=== PATIENT | female | born 1965 | race Caucasian/White ===

== ENCOUNTER 2017-10-02 08:52 | Day surgery (SDC) | payer BC ==
[2017-10-02] MEDS ORDERED: PROPOFOL 200 MG/20 ML VIAL As Ordered ×2 (10:04→10:08)
== END 2017-10-02 10:52 | disposition home or self-care (01) ==
LOC: M OPP 08:52
DX: R13.10 Dysphagia, unspecified (principal); R12 Heartburn; K22.8 Other specified diseases of esophagus; K44.9 Diaphragmatic hernia without obstruction or gangrene; K21.0 Gastro-esophageal reflux disease with esophagitis; K31.89 Other diseases of stomach and duodenum; I10 Essential (primary) hypertension; E03.9 Hypothyroidism, unspecified; F32.9 Major depressive disorder, single episode, unspecified; F17.210 Nicotine dependence, cigarettes, uncomplicated; J44.9 Chronic obstructive pulmonary disease, unspecified; Z80.42 Family history of malignant neoplasm of prostate; Z79.899 Other long term (current) drug therapy
CPT/HCPCS: 43239

== ENCOUNTER → 2019-08-26 | Outpatient (CLI) | payer BC ==
[~2019-08-26] MED LIST: ESOM1CAP5; LEVO125T41 PO; LEVO200T4 PO; PAXI30TA11 PO; TRIBTAB PO
--- NOTE | 2019-08-26 14:24 | REP ---
WHOLE BODY RADIONUCLIDE BONE SCAN: HISTORY: Deformity at the posterolateral left 11th rib. TECHNIQUE: 21.4 mCi of technetium 99m MDP is injected and standard whole body bone scan imaging was acquired. Comparison CT study of the chest January 23, 2019 and August 24, 2019. Also reviewed is a prior CT study from June 26, 2013. That prior study showed several left posterior healing rib fractures, including the left posterior 10th rib. FINDINGS: There is a normal distribution bilaterally in the knees. There are foci of slightly increased uptake in the posterior segment of the left 10th rib and in the posterolateral segment of the left 9th rib consistent with healed or healing rib fractures. The left 10th rib focus corresponds with the area of slight deformity in the posterolateral segment of the 10th rib on recent CT study. This is visible in retrospect and is unchanged from January 23, 2019 study. The 2013 study shows a obvious healing fracture in this location which is slightly displaced. The focus of uptake in the 9th posterolateral rib is radiographically occult but is felt to be consistent with a healing fracture as well. No other abnormal skeletal radionuclide uptake. IMPRESSION: No evidence to suggest metastatic disease. Old healed or healing rib fractures on the left as described above. Electronically Signed by Will Lozano MD 08/26/2019 02:38 P
== END ==
LOC: M RAD 09:55
PROVIDERS: ATTEND Internal Medicine Cardiovascular Disease
DX: R07.89 Other chest pain (principal); Z87.81 Personal history of (healed) traumatic fracture
CPT/HCPCS: 78306; A9503

== ENCOUNTER → 2022-01-01 | Outpatient (CLI) | payer BC | LOC: M PLARAD 08:17 | PROVIDERS: ATTEND Nurse Practitioner Family | DX: R91.1 Solitary pulmonary nodule (principal); J43.2 Centrilobular emphysema; I70.0 Atherosclerosis of aorta; I25.10 Atherosclerotic heart disease of native coronary artery without angina pectoris | CPT/HCPCS: 78815; A9552 ==

== ENCOUNTER → 2022-07-09 | Outpatient (CLI) | payer BC ==
[~2022-07-09] MED LIST changes: +**SFHN** LIDOCAINE 1% MDV 20ML VIAL ONE; +**SFHN** methylPREDNISolone 40MG 1ML VIAL ONE; +ISOVUE-300 61% 100ML VIAL ONE; +OLME-4 PO; -PAXI30TA11 PO; +PAXI30TA12 PO; -TRIBTAB PO
== END ==
LOC: M PLAIMG 13:08
PROVIDERS: ATTEND Physician Assistant
DX: M16.12 Unilateral primary osteoarthritis, left hip (principal)
CPT/HCPCS: 20610; 76000; J2920

== ENCOUNTER → 2023-11-22 | Outpatient (CLI) | payer BC ==
[~2023-11-22] MED LIST changes: -**SFHN** LIDOCAINE 1% MDV 20ML VIAL ONE; -**SFHN** methylPREDNISolone 40MG 1ML VIAL ONE; +ESOM1CAP20; -ESOM1CAP5; -ISOVUE-300 61% 100ML VIAL ONE
== END ==
LOC: M RAD 16:16
PROVIDERS: ATTEND Internal Medicine Pulmonary Disease
DX: R91.1 Solitary pulmonary nodule (principal)

== ENCOUNTER → 2024-03-16 | Outpatient (CLI) | payer BC | LOC: M PLARAD 14:11 | PROVIDERS: ATTEND Internal Medicine Pulmonary Disease | DX: R91.1 Solitary pulmonary nodule (principal) | CPT/HCPCS: 78815; A9552 ==

== ENCOUNTER → 2024-03-24 | Outpatient (REF) | payer BC ==
[2024-03-24 13:07] LABS: PLATELET COUNT, AUTOMATED 237 10^3/uL (150-450)
[2024-03-24 13:19] LABS: INR 0.94; PARTIAL THROMBOPLASTIN TIME 27.1 SECONDS (24.8-34.2); PROTHROMBIN TIME 12.3 SECONDS (12.5-14.5)
== END ==
LOC: M LAB REF 12:07
PROVIDERS: ATTEND Internal Medicine Pulmonary Disease
DX: Z01.812 Encounter for preprocedural laboratory examination (principal)

== ENCOUNTER 2024-03-30 08:35 | Inpatient (IN) | payer BC ==
[~2024-03-30] VITALS: Ht 177.8 cm; Wt 94.8 kg
[2024-03-30] MEDS ORDERED: MIDAZOLAM INJ 2MG/2ML VIAL As Ordered ONE (09:08)
[2024-03-30] MEDS ORDERED: fentaNYL 100 MCG/2 ML INJECTION As Ordered ONE (09:08)
[2024-03-30] MEDS ORDERED: LIDOCAINE 1% MDV 20ML VIAL As Ordered ONE (09:37)
[2024-03-30] MEDS ORDERED: ACETAMINOPHEN 325 MG TAB PO PRN (10:50)
[2024-03-30] MEDS ORDERED: NORCO, ANEXSIA 5/325MG TABLET (HYDROcodone/ACETAMINOPHEN) PO PRN (10:50)
[2024-03-30] MEDS ORDERED: hydrALAZINE 20MG/ML 1ML VIAL IV PRN (11:25)
[2024-03-30 12:35] LABS: HEMATOCRIT 46.3 % (36.0-47.0); HEMOGLOBIN 15.2 g/dl (12.0-15.5); MEAN CORPUSCULAR HEMOGLOBIN 34.1 pg (27.0-33.0); MEAN CORPUSCULAR HGB CONC 32.8 g/dl (32.0-36.5); MEAN CORPUSCULAR VOLUME 103.8 fl (80.0-96.0); PLATELET COUNT, AUTOMATED 218 10^3/uL (150-450); RED BLOOD COUNT 4.46 10^6/uL (4.00-5.40); WHITE BLOOD COUNT 8.8 10^3/uL (4.0-10.0)
[2024-03-30 12:58] LABS: BLOOD UREA NITROGEN 12 MG/DL (9-23); CALCIUM LEVEL 9.2 MG/DL (8.3-10.6); CARBON DIOXIDE LEVEL 29 MMOL/L (20-31); CHLORIDE LEVEL 111 MMOL/L (98-107); GLOMERULAR FILTRATION RATE > 60.0 (>45); GLUCOSE, FASTING 128 MG/DL (74-106); POTASSIUM SERUM 4.6 MMOL/L (3.5-5.1); SODIUM LEVEL 143 MMOL/L (136-145)
[2024-03-30] MEDS: PERCOCET 5MG/325MG TAB PO PRN ×2 (14:07→21:24)
[2024-03-30] MEDS: NS 1,000 ML IV SCH (14:13)
[2024-03-30 16:13] VITALS: BP 156/79; TEMP 96.9; O2SAT 98
[2024-03-30] MEDS ORDERED: ERGO500029 PO (16:55)
[2024-03-30] MEDS ORDERED: HOME MED LIST COMPLETE! XX SCH (16:55)
[2024-03-30] MEDS ORDERED: LEVO137T2 PO (16:55)
[2024-03-30] MEDS ORDERED: PANT40TA29 PO (16:55)
[2024-03-30] MEDS ORDERED: MONT10TA97 PO (16:55)
[2024-03-30] MEDS ORDERED: VALS1TAB67 PO (16:55)
[2024-03-30] MEDS: IPRATROPIUM 0.5MG/ALBUTEROL 2.5MG INH SOL UD 3ML (DUONEB) NEB SCH (19:46)
[2024-03-30 20:49] VITALS: BP 148/60; TEMP 97.3; O2SAT 96
[2024-03-30] MEDS: PARoxetine 10MG TABLET PO SCH (21:17)
[2024-03-30] MEDS: HEPARIN SOD (PORCINE) 5000UNITS/ML 1ML VIAL/SYRINGE SC SCH (21:17)
[2024-03-30] MEDS: MONTELUKAST 10 MG TAB PO SCH (21:17)
[2024-03-31 00:20] VITALS: BP 150/90; TEMP 97.2; O2SAT 97
[2024-03-31 04:39] VITALS: BP 148/58; TEMP 97.6; O2SAT 97
[2024-03-31 05:49] LABS: BASO % 0.5 % (0.0-1.0); EOS % 0.5 % (0.0-3.0); HEMATOCRIT 44.4 % (36.0-47.0); HEMOGLOBIN 14.5 g/dl (12.0-15.5); LYMPH # 1.7 10^3/uL (1.5-5.0); LYMPH % 20.4 % (24.0-44.0); MEAN CORPUSCULAR HEMOGLOBIN 34.3 pg (27.0-33.0); MEAN CORPUSCULAR HGB CONC 32.7 g/dl (32.0-36.5); MONO # 0.8 10^3/uL (0.0-0.8); MONO % 8.9 % (2.0-8.0); NEUTROPHILS # 5.8 10^3/uL (1.5-8.5); PLATELET COUNT, AUTOMATED 215 10^3/uL (150-450); RED BLOOD COUNT 4.23 10^6/uL (4.00-5.40); WHITE BLOOD COUNT 8.4 10^3/uL (4.0-10.0)
[2024-03-31] MEDS: LEVOTHYROXINE 137MCG TABLET (0.137MG) PO SCH (06:10)
[2024-03-31 06:16] LABS: BLOOD UREA NITROGEN 11 MG/DL (9-23); CALCIUM LEVEL 9.1 MG/DL (8.3-10.6); CARBON DIOXIDE LEVEL 30 MMOL/L (20-31); CHLORIDE LEVEL 107 MMOL/L (98-107); CREATININE FOR GFR 0.61 MG/DL (0.55-1.30); GLOMERULAR FILTRATION RATE > 60.0 (>45); GLUCOSE, FASTING 107 MG/DL (74-106); POTASSIUM SERUM 3.7 MMOL/L (3.5-5.1); SODIUM LEVEL 142 MMOL/L (136-145)
[2024-03-31 07:50] VITALS: BP 150/82; TEMP 98.6; O2SAT 96
[2024-03-31] MEDS: PANTOPRAZOLE 40MG TAB (PROTONIX) PO SCH (09:52)
[2024-03-31] MEDS: VALSARTAN 80 MG TAB (DIOVAN) PO SCH (09:54)
[2024-03-31 12:01] VITALS: BP 146/82; TEMP 97.6; O2SAT 98
[2024-03-31 16:18] VITALS: BP 142/74; TEMP 97.6; O2SAT 96
[2024-03-31 20:58] VITALS: BP 157/90; TEMP 98; O2SAT 96
[2024-04-01 00:39] VITALS: BP 127/67; TEMP 98; O2SAT 97
[2024-04-01 04:34] VITALS: BP 149/81; TEMP 97.7; O2SAT 97
[2024-04-01 05:05] LABS: BASO % 0.4 % (0.0-1.0); EOS % 0.4 % (0.0-3.0); HEMATOCRIT 42.2 % (36.0-47.0); HEMOGLOBIN 13.9 g/dl (12.0-15.5); LYMPH # 1.4 10^3/uL (1.5-5.0); LYMPH % 15.9 % (24.0-44.0); MEAN CORPUSCULAR HEMOGLOBIN 33.8 pg (27.0-33.0); MEAN CORPUSCULAR HGB CONC 32.9 g/dl (32.0-36.5); MEAN CORPUSCULAR VOLUME 102.7 fl (80.0-96.0); MONO # 0.8 10^3/uL (0.0-0.8); MONO % 8.7 % (2.0-8.0); NEUTROPHILS # 6.6 10^3/uL (1.5-8.5); NEUTROPHILS % 74.2 % (36.0-66.0); PLATELET COUNT, AUTOMATED 229 10^3/uL (150-450); RED BLOOD COUNT 4.11 10^6/uL (4.00-5.40); WHITE BLOOD COUNT 8.9 10^3/uL (4.0-10.0)
[2024-04-01 05:30] LABS: BLOOD UREA NITROGEN 10 MG/DL (9-23); CALCIUM LEVEL 9.3 MG/DL (8.3-10.6); CARBON DIOXIDE LEVEL 32 MMOL/L (20-31); CHLORIDE LEVEL 108 MMOL/L (98-107); CREATININE FOR GFR 0.61 MG/DL (0.55-1.30); GLOMERULAR FILTRATION RATE > 60.0 (>45); GLUCOSE, FASTING 113 MG/DL (74-106); MAGNESIUM LEVEL 1.8 MG/DL (1.8-2.4); POTASSIUM SERUM 3.6 MMOL/L (3.5-5.1); SODIUM LEVEL 142 MMOL/L (136-145)
[2024-04-01 08:11] VITALS: BP 133/76; TEMP 97.4; O2SAT 95
[2024-04-01 08:23] VITALS: BP 133/76
[2024-04-01 09:07] VITALS: O2SAT 95
[2024-04-01] MEDS ORDERED: PERCOCET PO (10:34)
== END 2024-04-01 12:13 | disposition home or self-care (01) | DRG 143 ==
LOC: M IRPRO 08:35 → M ED INP 10:46 → M PCU 13:33
PROVIDERS: ADMIT Internal Medicine Nephrology; ATTEND Internal Medicine Nephrology
PROC: 0W9B30Z Drainage of Left Pleural Cavity with Drainage Device, Percutaneous Approach (ICD-10-PCS; 2024-03-30)
PROC: 0BBJ3ZX Excision of Left Lower Lung Lobe, Percutaneous Approach, Diagnostic (ICD-10-PCS; principal; 2024-03-30 09:30)
DX: J95.811 Postprocedural pneumothorax (principal); I10 Essential (primary) hypertension; Z66 Do not resuscitate; J44.9 Chronic obstructive pulmonary disease, unspecified; F17.200 Nicotine dependence, unspecified, uncomplicated; K21.9 Gastro-esophageal reflux disease without esophagitis; E03.9 Hypothyroidism, unspecified; F41.9 Anxiety disorder, unspecified; F32.A Depression, unspecified; Z96.649 Presence of unspecified artificial hip joint; Z90.79 Acquired absence of other genital organ(s); R91.8 Other nonspecific abnormal finding of lung field; Z79.899 Other long term (current) drug therapy; Z79.890 Hormone replacement therapy

== ENCOUNTER → 2024-08-26 | Outpatient (CLI) | payer BC ==
[~2024-08-26] MED LIST changes: +ERGO500029 PO; +LEVO137T2 PO; +MONT10TA97 PO; +PANT40TA29 PO; +PERCOCET PO; +VALS1TAB67 PO
== END ==
LOC: M RAD 15:59
PROVIDERS: ATTEND Internal Medicine Pulmonary Disease
DX: R91.1 Solitary pulmonary nodule (principal)

== ENCOUNTER → 2025-02-26 | Outpatient (CLI) | payer BC | LOC: M PLAIMG 11:06 | PROVIDERS: ATTEND Internal Medicine Pulmonary Disease | DX: R91.1 Solitary pulmonary nodule (principal); I71.21 Aneurysm of the ascending aorta, without rupture ==